=== PATIENT | male | born 1970 | race Caucasian/White ===

== ENCOUNTER 2016-12-07 15:01 | Observation (INO) | payer OTHER ==
[~2016-12-07] VITALS: Ht 175.3 cm; Wt 120.8 kg
[~2016-12-07 15:01] MED LIST: ASPIR-LOW81 MG PO; ASPIRIN E.C.81 M1 PO; ATORVASTATIN CA80 MG PO; CLOPIDOGREL75 MG PO; GLYBURIDE5 MG PO; IMDUR60 MG PO; JANUMET 50/51 TABLET PO; LANTUS 3 M100 UNITS1 SC; LIPITOR20 MG PO; LISINOPRIL-HCT1 EAC3 PO; LOPRESSOR25 MG PO; METFORMIN HCL1000 MG PO; METFORMIN HCL500 MG PO; NITROSTAT0.4 MG SL; PERCOCET 5/31 TABLET PO; PRAVACHOL40 MG PO; ST. JOSEPH ASPI81 MG PO; ZESTRIL,PRINIVIL5 MG PO; diabetic med
[2016-12-07 15:59] LABS: HEMATOCRIT 51.4 % (38.0-50.0); MCH 30.1 PG (29.0-34.0); MCHC 33.5 G/DL (30.0-36.0); MCV 89.9 FL (86-99); MEAN PLAT.VOLUME 10.3 uM^3 (9.0-12.4); PLATELET COUNT 219 K/uL (156-360); RBC DIS.WIDTH-SD 45.9 % (39-53); RED BLOOD COUNT 5.72 M/uL (4.00-5.50); WHITE BLOOD COUNT 10.8 K/uL (4.1-10.2)
[2016-12-07 16:00] LABS: CHLORIDE 100 mEq/L (99-109); POTASSIUM 4.3 mEq/L (3.7-5.4); SODIUM 137 mEq/L (136-147)
[2016-12-07 16:02] LABS: GLUCOSE 190 mg/dL (70-99)
[2016-12-07 16:04] LABS: ANION GAP 11 MEQ/L (2-14)
[2016-12-07 16:05] LABS: TROP-I INTERPRETATION NEGATIVE; TROPONIN-I < 0.01 ng/mL (0.0-0.30)
[2016-12-07 16:06] LABS: GFR ESTIMATE (CALCULATED) > 59 mL/min/
[2016-12-07 16:07] LABS: UREA NITROGEN (BUN) 13 mg/dL (9-23)
[2016-12-07] MEDS ORDERED: FLEXERIL10 MG PO (19:12)
[2016-12-07] MEDS ORDERED: NITROSTAT0.4 MG SL (19:12)
[2016-12-07] MEDS ORDERED: PLAVIX75 MG PO (19:12)
[2016-12-07] MEDS ORDERED: METOPROLOL TART25 MG PO (19:12)
[2016-12-07] MEDS ORDERED: ATORVASTATIN CA80 MG PO (19:12)
[2016-12-07] MEDS ORDERED: TRAZODONE HCL150 MG PO (19:13)
[2016-12-07] MEDS ORDERED: ISOSORBIDE MONO60 MG PO (19:14)
[2016-12-07] MEDS ORDERED: LITE COAT ASPI325 M1 PO (19:14)
[2016-12-07] MEDS ORDERED: HUMALOG MI100 UNIT/5 SC (19:14)
[2016-12-07] MEDS ORDERED: PERCOCET 5/31 TABLET PO (19:15)
[2016-12-07] MEDS ORDERED: MORPHINE SULFAT30 M2 PO (19:15)
[2016-12-07] MEDS ORDERED: SERTRALINE HCL100 MG PO (19:16)
[2016-12-07] MEDS ORDERED: INVOKAMET 150-1 EACH PO (19:16)
[2016-12-07 22:51] VITALS: BP 137/75
[2016-12-07 22:52] LABS: TROP-I INTERPRETATION NEGATIVE; TROPONIN-I < 0.01 ng/mL (0.0-0.30)
[2016-12-07 23:03] LABS: TOTAL BILIRUBIN 0.4 mg/dL (0.0-1.0)
[2016-12-07 23:04] LABS: ALKALINE PHOSPHATASE 89 IU/L (3-129)
[2016-12-07 23:07] LABS: DIRECT BILIRUBIN 0.1 mg/dL (0.0-0.3)
[2016-12-07 23:08] LABS: LIPASE 53 U/L (1.0-51.0)
[2016-12-08 03:44] LABS: HEMATOCRIT 46.9 % (38.0-50.0); MCV 90.7 FL (86-99); MEAN PLAT.VOLUME 10.1 uM^3 (9.0-12.4); PLATELET COUNT 175 K/uL (156-360); RBC DIS.WIDTH-CV 13.8 % (11.8-14.6); RBC DIS.WIDTH-SD 46.1 % (39-53); RED BLOOD COUNT 5.17 M/uL (4.00-5.50); WHITE BLOOD COUNT 8.2 K/uL (4.1-10.2)
[2016-12-08 03:46] LABS: CHLORIDE 102 mEq/L (99-109); POTASSIUM 4.7 mEq/L (3.7-5.4); SODIUM 138 mEq/L (136-147)
[2016-12-08 03:48] LABS: GLUCOSE 150 mg/dL (70-99)
[2016-12-08 03:49] LABS: ANION GAP 8 MEQ/L (2-14)
[2016-12-08 03:52] LABS: GFR ESTIMATE (CALCULATED) > 59 mL/min/
[2016-12-08 03:53] LABS: UREA NITROGEN (BUN) 21 mg/dL (9-23)
[2016-12-08 03:58] LABS: TROP-I INTERPRETATION NEGATIVE; TROPONIN-I < 0.01 ng/mL (0.0-0.30)
[2016-12-08 04:14] VITALS: BP 122/76
[2016-12-08 08:00] VITALS: BP 117/60
[2016-12-08 08:11] LABS: POINT-OF-CARE METER ID UU13113831
[2016-12-08 11:06] VITALS: BP 119/74
[2016-12-08 12:32] LABS: POINT-OF-CARE METER ID UU14162513
[2016-12-08 15:16] VITALS: BP 121/70
[2016-12-08 18:45] LABS: POINT-OF-CARE METER ID UU14162513
[2016-12-08 19:51] VITALS: BP 126/80
== END 2016-12-08 20:58 | disposition home or self-care (01) ==
LOC: EME 15:01 → EDOF 21:48 → 5WEST 21:48 → EDOF 21:48 → 5WEST 22:35
PROVIDERS: Hospitalist
DX: R07.89 Other chest pain (principal); I25.10 Atherosclerotic heart disease of native coronary artery without angina pectoris; Z95.5 Presence of coronary angioplasty implant and graft; I25.82 Chronic total occlusion of coronary artery; I10 Essential (primary) hypertension; E11.9 Type 2 diabetes mellitus without complications; Z79.4 Long term (current) use of insulin; E66.9 Obesity, unspecified; Z68.39 Body mass index [BMI] 39.0-39.9, adult; E78.5 Hyperlipidemia, unspecified; Z87.891 Personal history of nicotine dependence; Z81.1 Family history of alcohol abuse and dependence; Z82.61 Family history of arthritis; Z79.82 Long term (current) use of aspirin
CPT/HCPCS: 71020; 71275; 80048; 80076; 82948; 83690; 84484; 85027; 93005; 99281; 99285; G0378; J1644; J1815; J1885; J7030

== ENCOUNTER 2017-09-02 08:14 | Observation (INO) | payer OTHER ==
[~2017-09-02] VITALS: Ht 175.3 cm; Wt 129.6 kg
[~2017-09-02 08:14] MED LIST changes: +FLEXERIL10 MG PO; +HUMALOG MI100 UNIT/5 SC; +INVOKAMET 150-1 EACH PO; +ISOSORBIDE MONO60 MG PO; +LITE COAT ASPI325 M1 PO; +METOPROLOL TART25 MG PO; +MORPHINE SULFAT30 M2 PO; +PLAVIX75 MG PO; +SERTRALINE HCL100 MG PO; +TRAZODONE HCL150 MG PO
[2017-09-02 09:17] LABS: HEMOGLOBIN 15.5 G/DL (12.5-16.6); MCH 29.5 PG (29.0-34.0); MCHC 33.7 G/DL (30.0-36.0); MCV 87.6 FL (86-99); PLATELET COUNT 214 K/uL (156-360); RBC DIS.WIDTH-CV 12.8 % (11.8-14.6); RBC DIS.WIDTH-SD 41.1 % (39-53); RED BLOOD COUNT 5.25 M/uL (4.00-5.50); WHITE BLOOD COUNT 7.1 K/uL (4.1-10.2)
[2017-09-02 09:28] LABS: CHLORIDE 105 mEq/L (99-109); POTASSIUM 4.4 mEq/L (3.7-5.4); SODIUM 141 mEq/L (136-147)
[2017-09-02 09:29] LABS: GLUCOSE 146 mg/dL (70-99)
[2017-09-02 09:33] LABS: CREATININE 0.8 mg/dL (0.6-1.3); GFR ESTIMATE (CALCULATED) > 59 mL/min/ (58.99-99999)
[2017-09-02 09:34] LABS: UREA NITROGEN (BUN) 11 mg/dL (9-23)
[2017-09-02 09:38] LABS: TROP-I INTERPRETATION NEGATIVE; TROPONIN-I < 0.01 ng/mL (0.0-0.30)
[2017-09-02] MEDS ORDERED: PLAVIX75 MG PO (11:18)
[2017-09-02] MEDS ORDERED: HUMALOG MI100 UNIT/5 SC ×2 (11:20)
[2017-09-02] MEDS ORDERED: IMDUR60 MG PO (11:21)
[2017-09-02] MEDS ORDERED: ZOLOFT100 MG PO (11:23)
[2017-09-02] MEDS ORDERED: ATARAX,VISTARIL25 MG PO (11:24)
[2017-09-02 12:32] VITALS: BP 140/92
[2017-09-02 15:14] LABS: TROP-I INTERPRETATION NEGATIVE; TROPONIN-I < 0.01 ng/mL (0.0-0.30)
[2017-09-02 16:03] VITALS: BP 132/83
[2017-09-02 18:50] VITALS: BP 129/76
[2017-09-02 19:36] VITALS: BP 142/83
[2017-09-02 21:15] LABS: TROP-I INTERPRETATION NEGATIVE; TROPONIN-I < 0.01 ng/mL (0.0-0.30)
[2017-09-02 23:53] VITALS: BP 139/67
[2017-09-03 03:52] VITALS: BP 158/81
[2017-09-03 07:37] VITALS: BP 149/89
== END 2017-09-03 11:15 | disposition home or self-care (01) ==
LOC: EME 08:14 → EDOF 11:03 → ENRESERV 11:09 → EDOF 11:10 → ENRESERV 11:24 → 5WEST 12:21
PROVIDERS: Internal Medicine
DX: R07.9 Chest pain, unspecified (principal); M25.512 Pain in left shoulder; I10 Essential (primary) hypertension; E78.5 Hyperlipidemia, unspecified; I25.10 Atherosclerotic heart disease of native coronary artery without angina pectoris; Z95.5 Presence of coronary angioplasty implant and graft; E11.9 Type 2 diabetes mellitus without complications; G89.29 Other chronic pain; M54.2 Cervicalgia; Z79.4 Long term (current) use of insulin; Z87.891 Personal history of nicotine dependence; Z82.61 Family history of arthritis; Z81.1 Family history of alcohol abuse and dependence
CPT/HCPCS: 71046; 73221; 80048; 82948; 84484; 85027; 93005; 99281; 99285; G0378; J1170; J1650; J1815